=== PATIENT | male | born 1990 | race African-American/Black ===

== ENCOUNTER 2018-09-25 10:49 | Emergency (ER) | payer OTHER ==
[~2018-09-25] VITALS: Ht 172.7 cm; Wt 79.4 kg
[2018-09-25 10:50] VITALS: BP 130/72
[2018-09-25] MEDS ORDERED: NORFLEX100 MG PO (11:41)
[2018-09-25] MEDS ORDERED: NAPROSYN500 MG PO (11:41)
== END 2018-09-25 10:50 | disposition home or self-care (01) ==
LOC: ER 10:49
DX: S16.1XXA Strain of muscle, fascia and tendon at neck level, initial encounter (principal); R51 Headache; V89.2XXA Person injured in unspecified motor-vehicle accident, traffic, initial encounter; Y93.89 Activity, other specified; Y92.89 Other specified places as the place of occurrence of the external cause; Y99.8 Other external cause status